=== PATIENT | male | born 1945 | race Caucasian/White ===

== ENCOUNTER 2023-07-16 09:38 | Observation (INO) | payer OTHER, MEDICARE ==
[2023-07-16 11:38] LABS: VENOUS BASE EXCESS -0.9 mmol/L (-2-2); VENOUS O2 SATURATION 59.1 % (70-80); VENOUS PCO2 40.4 mmHg (38-52); VENOUS PH 7.391 (7.310-7.410)
[2023-07-16 11:45] LABS: BASO % 0.3 % (0-2.0); HEMATOCRIT 43.2 % (35.4-49); HEMOGLOBIN 14.5 GM/dL (11.7-16.9); LYMPH % 2.8 % (8-40); MCH 30.9 pg (25.7-33.7); MCHC 33.6 g/dl (32.0-35.9); MONO % 7.5 % (3.8-10.2); NEUT % 89.4 % (42.8-82.8); PLATELET COUNT 181 10^3/uL (134-434); RDW 14.8 % (11.9-15.9); WHITE BLOOD COUNT 12.6 K/mm3 (4.0-10.0)
[2023-07-16 11:50] LABS: INR 1.06 (0.83-1.09); PROTHROMBIN TIME (PATIENT) 12.3 SEC (9.7-13.0)
[2023-07-16 11:52] LABS: ACTIVATED PTT 27.3 SECONDS (25.2-36.5)
[2023-07-16 11:55] LABS: CALCIUM 9.4 mg/dL (8.5-10.1)
[2023-07-16 11:56] LABS: ALBUMIN 3.7 g/dl (3.4-5.0); BLOOD UREA NITROGEN 28.8 mg/dL (7-18)
[2023-07-16 11:59] LABS: CREATININE 1.3 mg/dL (0.55-1.3)
[2023-07-16 12:00] LABS: TOT PROT 6.8 g/dl (6.4-8.2)
[2023-07-16 12:01] LABS: BILIRUBIN,TOTAL 0.8 mg/dL (0.2-1)
[2023-07-16 16:07] LABS: PH,URINE 5.5 (5.0-8.0); URINE APPEARANCE CLEAR; URINE BILIRUBIN NEGATIVE (NEGATIVE); URINE COLOR YELLOW; URINE GLUCOSE (UA) 3+ (NEGATIVE); URINE KETONE NEGATIVE (NEGATIVE); URINE LEUK ESTERASE NEGATIVE (NEGATIVE); URINE NITRITE NEGATIVE (NEGATIVE); URINE PROTEIN NEGATIVE (NEGATIVE); URINE UROBILINOGEN 0.2 mg/dL (0.2-1.0)
[2023-07-16] MEDS ORDERED: DOCUSATE SODIUM 100 MG CAPSULE (FP) PO PRN (20:04)
[2023-07-16] MEDS: INSULIN ASPART SLIDING SCALE (NOVOLOG) 1 VIAL SQ SCH (22:02)
[2023-07-17 01:19] VITALS: BMI 24.1
[2023-07-17 08:17] LABS: BASO % 0.7 % (0-2.0); EOS % 0.4 % (0-4.5); HEMATOCRIT 40.8 % (35.4-49); LYMPH % 7.8 % (8-40); MCH 31.6 pg (25.7-33.7); MCHC 34.3 g/dl (32.0-35.9); MEAN CELL VOLUME 92.3 fl (80-96); MEAN PLT VOLUME 9.2 fl (7.5-11.1); MONO % 9.8 % (3.8-10.2); NEUT % 81.3 % (42.8-82.8); PLATELET COUNT 166 10^3/uL (134-434); RBC 4.42 M/mm3 (4.00-5.60); RDW 15.1 % (11.9-15.9); WHITE BLOOD COUNT 9.2 K/mm3 (4.0-10.0)
[2023-07-17 08:28] LABS: POTASSIUM 3.8 mmol/L (3.5-5.1)
[2023-07-17 08:35] LABS: CALCIUM 8.6 mg/dL (8.5-10.1); MAGNESIUM 2.2 mg/dL (1.8-2.4)
[2023-07-17 08:39] LABS: PHOSPHOROUS 2.5 mg/dL (2.5-4.9)
[2023-07-17 08:40] LABS: CREATININE 1.1 mg/dL (0.55-1.3)
[2023-07-17] MEDS: PNEUMOC 20-VAL CONJ-DIP CRM/PF 0.5 ML SYRINGE IM ONE (16:50)
[2023-07-18 07:30] VITALS: TEMP 97.7
[2023-07-18 07:39] LABS: HEMOGLOBIN 14.7 GM/dL (11.7-16.9); MCH 31.5 pg (25.7-33.7); MCHC 34.2 g/dl (32.0-35.9); MEAN CELL VOLUME 92.1 fl (80-96); MEAN PLT VOLUME 8.8 fl (7.5-11.1); PLATELET COUNT 173 10^3/uL (134-434); RBC 4.66 M/mm3 (4.00-5.60); RDW 14.7 % (11.9-15.9); WHITE BLOOD COUNT 9.8 K/mm3 (4.0-10.0)
[2023-07-18 07:59] LABS: POTASSIUM 3.9 mmol/L (3.5-5.1)
[2023-07-18 08:05] LABS: BLOOD UREA NITROGEN 24.3 mg/dL (7-18); CALCIUM 8.7 mg/dL (8.5-10.1)
[2023-07-18 08:06] LABS: ALBUMIN 3.2 g/dl (3.4-5.0)
[2023-07-18 08:09] LABS: BILIRUBIN,TOTAL 1.4 mg/dL (0.2-1); TOT PROT 6.2 g/dl (6.4-8.2)
[2023-07-18 09:15] VITALS: BP 140/77; PULSE 91; RESP 19
== END 2023-07-18 13:56 | disposition home health service (06) ==
LOC: JER 09:38 → JERBED 18:08 → J4W 21:56
PROVIDERS: ADMIT Internal Medicine; ATTEND Family Medicine
PROC: 0T9B70Z Drainage of Bladder with Drainage Device, Via Natural or Artificial Opening (ICD-10-PCS; principal; 2023-07-16)
PROC: 3E023GC Introduction of Other Therapeutic Substance into Muscle, Percutaneous Approach (ICD-10-PCS; 2023-07-16)
DX: R41.82 Altered mental status, unspecified (principal); F03.90 Unspecified dementia, unspecified severity, without behavioral disturbance, psychotic disturbance, mood disturbance, and anxiety; R33.9 Retention of urine, unspecified; E86.0 Dehydration; N40.1 Benign prostatic hyperplasia with lower urinary tract symptoms; R29.6 Repeated falls; G40.909 Epilepsy, unspecified, not intractable, without status epilepticus; J44.9 Chronic obstructive pulmonary disease, unspecified; E11.9 Type 2 diabetes mellitus without complications; I10 Essential (primary) hypertension; M62.82 Rhabdomyolysis; R55 Syncope and collapse; G62.9 Polyneuropathy, unspecified; X58.XXXA Exposure to other specified factors, initial encounter; Y93.89 Activity, other specified; Y92.89 Other specified places as the place of occurrence of the external cause; G45.9 Transient cerebral ischemic attack, unspecified; Z79.4 Long term (current) use of insulin; Z87.891 Personal history of nicotine dependence; Z23 Encounter for immunization
CPT/HCPCS: 0241U-QW; 36415; 51702; 70450-TC; 71045-TC-FY; 72125-TC; 80048; 80053; 80307; 81003; 82550; 82553; 82803; 82962; 83605; 83735; 83874; 84100; 84443; 84484; 85025; 85027; 85610; 85730; 87040; 87086; 90677; 93005; 93010; 96372; 97116-GP; 99285-25; G0378

== ENCOUNTER 2023-09-27 08:22 | Observation (INO) | payer OTHER, MEDICARE ==
[2023-09-27] MEDS: ACETAMINOPHEN 500 MG TABLET (FP) PO ONE (10:17)
[2023-09-27] MEDS ORDERED: ACETAMINOPHEN 325 MG TABLET (FP) ONE (10:18)
[2023-09-27 11:23] LABS: BASO % 0.5 % (0-2.0); EOS % 0.1 % (0-4.5); HEMATOCRIT 43.7 % (35.4-49); HEMOGLOBIN 14.5 GM/dL (11.7-16.9); LYMPH % 6.2 % (8-40); MCHC 33.2 g/dl (32.0-35.9); MEAN CELL VOLUME 93.3 fl (80-96); MEAN PLT VOLUME 8.3 fl (7.5-11.1); MONO % 14.4 % (3.8-10.2); NEUT % 78.8 % (42.8-82.8); PLATELET COUNT 195 10^3/uL (134-434); RBC 4.68 M/mm3 (4.00-5.60); RDW 14.6 % (11.9-15.9); WHITE BLOOD COUNT 9.7 K/mm3 (4.0-10.0)
[2023-09-27 11:47] LABS: ACTIVATED PTT 32.8 SECONDS (25.2-36.5); INR 1.11 (0.83-1.09); PROTHROMBIN TIME (PATIENT) 12.9 SEC (9.7-13.0)
[2023-09-27 11:48] LABS: POTASSIUM 4.4 mmol/L (3.5-5.1)
[2023-09-27 11:50] LABS: CALCIUM 9.1 mg/dL (8.5-10.1)
[2023-09-27 11:51] LABS: ALBUMIN 3.2 g/dl (3.4-5.0); BLOOD UREA NITROGEN 26.9 mg/dL (7-18); MAGNESIUM 2.2 mg/dL (1.8-2.4)
[2023-09-27 11:54] LABS: CREATININE 1.3 mg/dL (0.55-1.3)
[2023-09-27 11:55] LABS: BILIRUBIN,TOTAL 1.2 mg/dL (0.2-1); TOT PROT 6.7 g/dl (6.4-8.2)
[2023-09-27 15:12] LABS: URINE APPEARANCE TURBID; URINE BILIRUBIN NEGATIVE (NEGATIVE); URINE COLOR YELLOW; URINE GLUCOSE (UA) 4+ (NEGATIVE)
[2023-09-27 15:13] LABS: HYALINE CASTS 440.43 /uL (0-3.1); PH,URINE 5.5 (5.0-8.0); URINE BACTERIA 7165.3 /uL (0-1359); URINE KETONE NEGATIVE (NEGATIVE); URINE LEUK ESTERASE 4+ (NEGATIVE); URINE NITRITE POSITIVE (NEGATIVE); URINE PROTEIN 1+ (NEGATIVE); URINE RBC 681.7 /uL (0-23.9); URINE UROBILINOGEN 0.2 mg/dL (0.2-1.0); URINE WBC 36273.2 /uL (0-25.8)
[2023-09-27 15:14] LABS: YEAST NEGATIVE (NEGATIVE)
[2023-09-27] MEDS: INSULIN (LEVEMIR) 100 UNITS/ML UNITS SQ SCH (18:46)
[2023-09-27] MEDS: HEPARIN NA (PORCINE) 5,000 UNITS/ML 1ML VIAL SQ SCH (22:25)
[2023-09-27] MEDS: ATORVASTATIN CA 10 MG TABLET (FP) PO SCH (22:25)
[2023-09-27] MEDS: INSULIN ASPART SLIDING SCALE (NOVOLOG) 1 VIAL SQ SCH (22:41)
[2023-09-28 01:57] VITALS: BMI 31.3
[2023-09-28] MEDS: ACETAMINOPHEN 1000 MG/100 ML BAG IVPB ONE (05:00)
[2023-09-28] MEDS: metFORMIN HCL 500 MG TABLET (FP) PO SCH (06:20)
[2023-09-28 09:06] LABS: BASO % 0.8 % (0-2.0); EOS % 1.4 % (0-4.5); HEMATOCRIT 44.6 % (35.4-49); HEMOGLOBIN 14.4 GM/dL (11.7-16.9); LYMPH % 11.2 % (8-40); MCH 30.6 pg (25.7-33.7); MCHC 32.3 g/dl (32.0-35.9); MEAN CELL VOLUME 94.7 fl (80-96); MEAN PLT VOLUME 9.2 fl (7.5-11.1); MONO % 11.9 % (3.8-10.2); NEUT % 74.7 % (42.8-82.8); PLATELET COUNT 216 10^3/uL (134-434); RDW 14.5 % (11.9-15.9); WHITE BLOOD COUNT 8.4 K/mm3 (4.0-10.0)
[2023-09-28 09:24] LABS: POTASSIUM 4.1 mmol/L (3.5-5.1)
[2023-09-28 09:28] LABS: BLOOD UREA NITROGEN 24.3 mg/dL (7-18); CALCIUM 8.7 mg/dL (8.5-10.1); MAGNESIUM 2.2 mg/dL (1.8-2.4)
[2023-09-28 09:33] LABS: BILIRUBIN,TOTAL 0.8 mg/dL (0.2-1); TOT PROT 6.4 g/dl (6.4-8.2); URIC ACID 4.1 mg/dL (2.6-7.2)
[2023-09-28] MEDS: CEFTRIAXONE 1 GM in DEXTROSE 5%-WATER - 50 ML IVPB SCH (10:07)
[2023-09-28] MEDS: ASPIRIN 81 MG CHEWABLE TABLETS PO SCH (10:07)
[2023-09-29] MEDS ORDERED: ACETAMINOPHEN 1000 MG/100 ML BAG IVPB PRN (02:44)
[2023-09-29] MEDS ORDERED: MELATONIN 5 MG TABLETS PO PRN (02:45)
[2023-09-29] MEDS ORDERED: INSULIN ASPART SLIDING SCALE (NOVOLOG) 1 VIAL SQ ONE (07:53)
[2023-09-29 12:24] VITALS: RESP 18; TEMP 97.8
[2023-09-29 14:19] VITALS: BP 154/84; PULSE 83
== END 2023-09-29 17:55 | disposition home or self-care (01) ==
LOC: JER 08:22 → JERBED 17:26 → J6S 18:05
PROVIDERS: ADMIT Internal Medicine; ATTEND Internal Medicine
PROC: 3E03329 Introduction of Other Anti-infective into Peripheral Vein, Percutaneous Approach (ICD-10-PCS; principal; 2023-09-27)
PROC: 3E023GC Introduction of Other Therapeutic Substance into Muscle, Percutaneous Approach (ICD-10-PCS; 2023-09-27)
PROC: 2W3FX1Z Immobilization of Left Hand using Splint (ICD-10-PCS; 2023-09-27)
DX: S69.92XA Unspecified injury of left wrist, hand and finger(s), initial encounter (principal); N30.00 Acute cystitis without hematuria; E11.9 Type 2 diabetes mellitus without complications; R56.9 Unspecified convulsions; I10 Essential (primary) hypertension; E78.5 Hyperlipidemia, unspecified; J44.9 Chronic obstructive pulmonary disease, unspecified; Z87.891 Personal history of nicotine dependence; X58.XXXA Exposure to other specified factors, initial encounter; Y93.89 Activity, other specified; Y92.009 Unspecified place in unspecified non-institutional (private) residence as the place of occurrence of the external cause
CPT/HCPCS: 29125; 36415; 70450-TC; 71046-TC-FY; 73110-TC-LT-FY; 73130-TC-LT-FY; 76705-TC; 80053; 81003; 82962; 83036; 83735; 84443; 84484; 84550; 85025; 85610; 85730; 86850; 86900; 86901; 87086; 87186; 93005; 93010; 96365; 96372; 96375; 97116-GP; 97161-GP; 99285-25; G0378; J1644

== ENCOUNTER 2023-10-08 15:11 | Emergency (ER) | payer OTHER, MEDICARE ==
[2023-10-08 15:51] VITALS: BMI 22.9
[2023-10-08 17:10] LABS: BASO % 1.1 % (0-2.0); EOS % 0.7 % (0-4.5); HEMOGLOBIN 14.3 GM/dL (11.7-16.9); LYMPH % 9.1 % (8-40); MCH 30.6 pg (25.7-33.7); MCHC 32.5 g/dl (32.0-35.9); MEAN CELL VOLUME 94.3 fl (80-96); MEAN PLT VOLUME 7.9 fl (7.5-11.1); MONO % 10.5 % (3.8-10.2); NEUT % 78.6 % (42.8-82.8); PLATELET COUNT 243 10^3/uL (134-434); RBC 4.66 M/mm3 (4.00-5.60); RDW 13.8 % (11.9-15.9); WHITE BLOOD COUNT 9.5 K/mm3 (4.0-10.0)
[2023-10-08 17:25] LABS: POTASSIUM 4.3 mmol/L (3.5-5.1)
[2023-10-08 17:27] LABS: CALCIUM 8.9 mg/dL (8.5-10.1)
[2023-10-08 17:28] LABS: ALBUMIN 3.3 g/dl (3.4-5.0); BLOOD UREA NITROGEN 22.6 mg/dL (7-18)
[2023-10-08 17:31] LABS: CREATININE 1.2 mg/dL (0.55-1.3)
[2023-10-08 17:33] LABS: BILIRUBIN,TOTAL 0.8 mg/dL (0.2-1); TOT PROT 6.6 g/dl (6.4-8.2)
[2023-10-08 18:13] LABS: PH,URINE 5.5 (5.0-8.0); URINE APPEARANCE CLEAR; URINE BILIRUBIN NEGATIVE (NEGATIVE); URINE COLOR YELLOW; URINE GLUCOSE (UA) 3+ (NEGATIVE); URINE KETONE NEGATIVE (NEGATIVE); URINE LEUK ESTERASE NEGATIVE (NEGATIVE); URINE NITRITE NEGATIVE (NEGATIVE); URINE PROTEIN NEGATIVE (NEGATIVE); URINE UROBILINOGEN 0.2 mg/dL (0.2-1.0)
[2023-10-08 18:55] VITALS: BP 125/65; PULSE 69; RESP 18; TEMP 98.4
== END 2023-10-08 19:15 | disposition home or self-care (01) ==
LOC: JER 15:11
DX: R41.82 Altered mental status, unspecified (principal)
CPT/HCPCS: 36415; 80053; 81003; 82962; 85025; 87086; 93005; 93010; 99284-25